=== PATIENT | female | born 1985 | race Caucasian/White ===

== ENCOUNTER 2017-01-13 04:34 | Inpatient (IN) | payer OTHER ==
[~2017-01-13] VITALS: Ht 167.6 cm; Wt 79.1 kg
[~2017-01-13 04:34] MED LIST: NOHOMEMEDS; PERCOCET 5/31 TABLET PO; TRAMADOL HCL E100 M1 PO; TRAMADOL HCL50 MG PO
[2017-01-13 04:48] LABS: HEMATOCRIT 35.8 % (36.0-46.0); MCH 30.6 PG (29.0-34.0); MCV 92.7 FL (83-99); MEAN PLAT.VOLUME 8.8 uM^3 (9.5-12.4); PLATELET COUNT 287 K/uL (156-360); RBC DIS.WIDTH-SD 43.8 % (39-53); RED BLOOD COUNT 3.86 M/uL (3.80-5.20); WHITE BLOOD COUNT 12.5 K/uL (4.1-10.2)
[2017-01-13 05:02] LABS: CHLORIDE 105 mEq/L (99-109); POTASSIUM 3.4 mEq/L (3.7-5.4); SODIUM 136 mEq/L (136-147)
[2017-01-13 05:04] LABS: GLUCOSE 94 mg/dL (70-99)
[2017-01-13 05:05] LABS: ANION GAP 9 MEQ/L (2-14)
[2017-01-13 05:07] LABS: SERUM ETHYL ALCOHOL < 10 mg/dL
[2017-01-13 05:08] LABS: GFR ESTIMATE (CALCULATED) > 59 mL/min/
[2017-01-13 05:09] LABS: UREA NITROGEN (BUN) 6 mg/dL (9-23)
[2017-01-13 07:43] LABS: QUANTITATIVE HCG 7658.4 MIU/ML
[2017-01-13 12:37] LABS: ADD MIUA? YES; BILIRUBIN NEGATIVE; BLOOD NEGATIVE; COLOR AMBER ((YELLOW)); GLUCOSE (STRIP) NEGATIVE; KETONES 20; LEUKOCYTES MODERATE; NITRITE NEGATIVE; PROTEIN (STRIP) 30; UROBILINOGEN 0.2 MG/DL (0.2-1.0)
[2017-01-13 12:49] LABS: AMPHETAMINE NEGATIVE (500 ng/mL); BACTERIA 1+ /HPF; BENZODIAZEPINES NEGATIVE (150 ng/mL); CALCIUM OXALATE CRYSTALS 2+ /HPF; COCAINE NEGATIVE (150 ng/mL); EPITHELIAL CELLS 3+ /HPF; METHADONE PRESUMPTIVE POSITIVE (200 ng/mL); METHAMPHETAMINE NEGATIVE (500 ng/mL); MUCUS 2+ /LPF; OPIATES (MORPHINE) PRESUMPTIVE POSITIVE (100 ng/mL); PHENCYCLIDINE NEGATIVE (25 ng/mL); RED BLOOD CELLS 0-5 /HPF (0-5); THC CANNABINOIDS NEGATIVE (50 ng/mL); TRICYCLIC ANTIDEPRESSANTS NEGATIVE (300 ng/mL); UCUL ADDED? NO; WHITE BLOOD CELLS 15-20 /HPF (0-5)
[2017-01-13 12:50] LABS: ADD MEDTOX COMMENT Y; BARBITURATES NEGATIVE (200 ng/mL); INTERNAL CONTROLS VALID? YES; OXYCODONE NEGATIVE (100 ng/mL); PROPOXYPHENE NEGATIVE (300 ng/mL)
[2017-01-13 16:27] VITALS: BP 103/59
[2017-01-14 07:48] VITALS: BP 110/55
[2017-01-14 15:36] VITALS: BP 126/62
[2017-01-15 08:07] VITALS: BP 100/58
[2017-01-15 15:48] VITALS: BP 106/60
[2017-01-16 07:45] VITALS: BP 107/55
[2017-01-16 15:20] VITALS: BP 106/67
[2017-01-17 07:44] VITALS: BP 99/54
[2017-01-17] MEDS ORDERED: PRENATAL VITAM1 EAC6 PO (11:07)
== END 2017-01-17 13:36 | disposition home or self-care (01) | DRG 882 ==
LOC: EME 04:34 → EDOF 13:53 → 1WEST 13:53 → EDOF 15:18 → 1WEST 16:31
PROVIDERS: Emergency Medicine
DX: F43.23 Adjustment disorder with mixed anxiety and depressed mood (principal); R45.851 Suicidal ideations; Z33.1 Pregnant state, incidental; F11.20 Opioid dependence, uncomplicated; M41.9 Scoliosis, unspecified; F17.200 Nicotine dependence, unspecified, uncomplicated
CPT/HCPCS: 76805; 80048; 81003; 84702; 84999; 85027; 90839; 97150 GO; 99281; 99285; G0480

== ENCOUNTER 2017-04-29 18:06 | Inpatient (IN) | payer OTHER ==
[~2017-04-29] VITALS: Ht 167.6 cm; Wt 81.6 kg
[2017-04-29] VITALS (14 sets, daily range): BP systolic 106–130; BP diastolic 55–74
[~2017-04-29 18:06] MED LIST changes: +PRENATAL VITAM1 EAC6 PO
[2017-04-29 18:35] LABS: EOSINOPHIL (%) 0.5 % (0-5); EOSINOPHIL COUNT 0.1 K/uL (0-0.3); HEMATOCRIT 36.4 % (36.0-46.0); IMMATURE GRANULOCYTE (%) 0.7 % (0.0-0.7); IMMATURE GRANULOCYTE COUNT 0.1 K/uL; INSTRUMENT ABS NEUTROPHIL CT 7.2 K/uL; LYMPHOCYTE COUNT 2.9 K/uL (1.0-2.8); MCHC 33.5 G/DL (30.0-36.0); MCV 92.6 FL (83-99); MEAN PLAT.VOLUME 9.7 uM^3 (9.5-12.4); MONOCYTE (%) 7.6 % (3-12); MONOCYTE COUNT 0.8 K/uL (0-0.8); NEUTROPHIL (%) 64.8 % (45-76); NEUTROPHIL COUNT 7.2 K/uL (1.8-6.4); PLATELET COUNT 230 K/uL (156-360); RBC DIS.WIDTH-CV 13.2 % (11.8-14.6); RBC DIS.WIDTH-SD 45.1 % (39-53); RED BLOOD COUNT 3.93 M/uL (3.80-5.20); WHITE BLOOD COUNT 11.1 K/uL (4.1-10.2)
[2017-04-29] MEDS ORDERED: BUSPAR15 MG PO (19:09)
[2017-04-29] MEDS ORDERED: BUPRENORPHINE HC2 MG SL (19:11)
[2017-04-29 19:49] LABS: AMPHETAMINE NEGATIVE (500 ng/mL); BARBITURATES NEGATIVE (200 ng/mL); BENZODIAZEPINES NEGATIVE (150 ng/mL); COCAINE NEGATIVE (150 ng/mL); INTERNAL CONTROLS VALID? YES; METHADONE NEGATIVE (200 ng/mL); METHAMPHETAMINE NEGATIVE (500 ng/mL); OPIATES (MORPHINE) NEGATIVE (100 ng/mL); OXYCODONE NEGATIVE (100 ng/mL); PHENCYCLIDINE NEGATIVE (25 ng/mL); PROPOXYPHENE NEGATIVE (300 ng/mL); THC CANNABINOIDS NEGATIVE (50 ng/mL); TRICYCLIC ANTIDEPRESSANTS NEGATIVE (300 ng/mL)
[2017-04-30] VITALS (17 sets, daily range): BP systolic 100–134; BP diastolic 55–69
[2017-04-30] MEDS ORDERED: IBUPROFEN800 MG PO (10:56)
[2017-05-01 09:19] VITALS: BP 121/71
[2017-05-01 15:45] VITALS: BP 139/87
[2017-05-02 07:47] VITALS: BP 116/70
[2017-05-02 15:51] VITALS: BP 101/55
== END 2017-05-02 21:43 | disposition home or self-care (01) | DRG 775 ==
LOC: LDRP-OP 18:06 → 2WEST 18:07 → LDRP-OP 06-04 16:30
PROVIDERS: Advanced Practice Midwife
PROC: 00HU33Z Insertion of Infusion Device into Spinal Canal, Percutaneous Approach (ICD-10-PCS; principal; 2017-04-29)
PROC: 3E0R3CZ (ICD-10-PCS; principal; 2017-04-29)
PROC: 10907ZC Drainage of Amniotic Fluid, Therapeutic from Products of Conception, Via Natural or Artificial Opening (ICD-10-PCS; principal; 2017-04-29)
PROC: 10E0XZZ Delivery of Products of Conception, External Approach (ICD-10-PCS; 2017-04-30)
PROC: 0KQM0ZZ Repair Perineum Muscle, Open Approach (ICD-10-PCS; 2017-04-30)
DX: O70.1 Second degree perineal laceration during delivery (principal); O63.1 Prolonged second stage (of labor); O99.323 Drug use complicating pregnancy, third trimester; F11.20 Opioid dependence, uncomplicated; Z87.891 Personal history of nicotine dependence; Z3A.39 39 weeks gestation of pregnancy; Z37.0 Single live birth
CPT/HCPCS: 85025; C1755; G0378; J0571; J1050; J3010; J7120